=== PATIENT | male | born 1985 | race Caucasian/White ===

== ENCOUNTER 2022-04-15 13:40 | Emergency (ER) | payer OTHER ==
[~2022-04-15] VITALS: Ht 185.4 cm; Wt 117.9 kg
[2022-04-15 13:45] VITALS: BP 134/89
[2022-04-15] MEDS ORDERED: IBUP-2070 PO (15:00)
[2022-04-15] MEDS ORDERED: IBUPROFEN 600 MG TABLET PO ONE (15:00)
== END 2022-04-15 15:37 | disposition home or self-care (01) ==
LOC: EDH 13:40
DX: S90.121A Contusion of right lesser toe(s) without damage to nail, initial encounter (principal); Z79.1 Long term (current) use of non-steroidal anti-inflammatories (NSAID); Z88.2 Allergy status to sulfonamides; X58.XXXA Exposure to other specified factors, initial encounter; Y93.89 Activity, other specified; Y92.89 Other specified places as the place of occurrence of the external cause; Y99.8 Other external cause status
CPT/HCPCS: 73660

== ENCOUNTER → 2022-10-23 | Outpatient (CLI) | payer OTHER ==
[~2022-10-23] MED LIST: IBUP-2070 PO
== END | disposition home or self-care (01) ==
LOC: RAH 15:59
PROVIDERS: ATTEND Family Medicine
DX: J20.9 Acute bronchitis, unspecified (principal)
CPT/HCPCS: 71046